=== PATIENT | female | born 1955 | race Asian ===

== ENCOUNTER → 2016-12-04 | Outpatient (REF) | payer OTHER ==
[2016-12-04 17:40] LABS: MEAN CORPUSCULAR HEMOGLOBIN 27.1 pg (27.0-33.0); MEAN CORPUSCULAR HGB CONC 32.5 g/dl (32.0-36.5); MEAN CORPUSCULAR VOLUME 83.5 fl (80.0-96.0); RED CELL DISTRIBUTION WIDTH 13.1 % (11.5-14.5); WHITE BLOOD COUNT 5.5 K/mm3 (4.0-10.0)
[2016-12-04 18:27] LABS: ALBUMIN 4.1 GM/DL (3.2-5.2); ALBUMIN/GLOBULIN RATIO 1.05 (1.00-1.93); ALKALINE PHOSPHATASE 69 U/L (45-117); ALT/SGPT 29 U/L (12-78); ANION GAP 9 MEQ/L (8-16); AST/SGOT 11 U/L (15-37); BILIRUBIN,TOTAL 0.5 MG/DL (0.2-1.0); BLOOD UREA NITROGEN 11 MG/DL (7-18); CALCIUM LEVEL 9.6 MG/DL (8.8-10.2); CARBON DIOXIDE LEVEL 29 MEQ/L (21-32); CHLORIDE LEVEL 102 MEQ/L (98-107); CHOLESTEROL LEVEL 210 MG/DL (<200); CREATININE FOR GFR 0.56 MG/DL (0.55-1.02); GLOMERULAR FILTRATION RATE > 60.0 (>45); GLUCOSE, FASTING 105 MG/DL (80-110); SODIUM LEVEL 140 MEQ/L (136-145); TRIGLYCERIDES LEVEL 198 MG/DL (<150)
== END ==
LOC: M SFHCLERA 11:07
PROVIDERS: ATTEND Family Medicine
DX: E11.9 Type 2 diabetes mellitus without complications (principal); E78.2 Mixed hyperlipidemia; E04.2 Nontoxic multinodular goiter

== ENCOUNTER 2017-03-09 16:33 | Observation (INO) | payer OTHER ==
[~2017-03-09] VITALS: Ht 157.5 cm; Wt 64.3 kg
[2017-03-09] MEDS ORDERED: LISI10TA4 PO (16:44)
[2017-03-09] MEDS ORDERED: ROSU10TA2 PO (16:44)
[2017-03-09] MEDS ORDERED: METF500T13 PO (16:44)
[2017-03-09] MEDS ORDERED: ECOT81TA5 PO (16:44)
[2017-03-09 17:24] LABS: BASO # 0.1 K/mm3 (0.0-0.2); BASO % 0.6 % (0.0-1.0); EOS # 0.1 K/mm3 (0.0-0.50); EOS % 0.6 % (0.0-3.0); LARGE UNSTAINED CELL # 0.2 K/mm3 (0.0-0.4); LARGE UNSTAINED CELL % 1.3 % (0.0-4.0); LYMPH # 1.4 K/mm3 (1.5-4.5); LYMPH % 9.3 % (24.0-44.0); MEAN CORPUSCULAR HEMOGLOBIN 27.1 pg (27.0-33.0); MEAN CORPUSCULAR HGB CONC 32.4 g/dl (32.0-36.5); MEAN CORPUSCULAR VOLUME 83.7 fl (80.0-96.0); MONO # 0.5 K/mm3 (0.0-0.8); MONO % 3.6 % (0.0-5.0); NEUTROPHILS # 12.7 K/mm3 (1.8-7.7); NEUTROPHILS % 84.7 % (36.0-66.0); PLATELET COUNT, AUTOMATED 492 k/mm3 (150-450); RED CELL DISTRIBUTION WIDTH 13.2 % (11.5-14.5)
[2017-03-09] MEDS ORDERED: METF-700 PO (17:24)
[2017-03-09] MEDS ORDERED: LISI20TA PO (17:24)
[2017-03-09 17:27] LABS: INR 0.87
[2017-03-09] MEDS ORDERED: PRAV10TA3 PO (17:32)
[2017-03-09] MEDS ORDERED: PROP40TA PO (17:32)
[2017-03-09 17:35] LABS: ALBUMIN 3.8 GM/DL (3.2-5.2); ALBUMIN/GLOBULIN RATIO 1.06 (1.00-1.93); ALKALINE PHOSPHATASE 69 U/L (45-117); ALT/SGPT 61 U/L (12-78); ANION GAP 13 MEQ/L (8-16); AST/SGOT 38 U/L (15-37); BILIRUBIN,DIRECT 0.2 MG/DL (0.0-0.2); BILIRUBIN,TOTAL 0.7 MG/DL (0.2-1.0); BLOOD UREA NITROGEN 19 MG/DL (7-18); CALCIUM LEVEL 9.6 MG/DL (8.8-10.2); CARBON DIOXIDE LEVEL 24 MEQ/L (21-32); CHLORIDE LEVEL 103 MEQ/L (98-107); CREATININE FOR GFR 1.68 MG/DL (0.55-1.02); FREE T4 1.05 NG/DL (0.76-1.46); GLOMERULAR FILTRATION RATE 32.7 (>45); GLUCOSE, FASTING 168 MG/DL (80-110); SODIUM LEVEL 140 MEQ/L (136-145); TOTAL PROTEIN 7.4 GM/DL (6.4-8.2)
--- NOTE | 2017-03-09 20:00 | REPUSA ---
Ultrasound of the gallbladder Clinical history: pain. Findings: The pancreas is limited in visualization secondary to overlying bowel gas, but appears grossly unrema rkable. The liver demonstrates increased echotexture and echogenicity, with no mass lesions. The gall bladder is unremarkable. The common bile duct measures 4 mm and is within normal limits. The right ki dney measures 10.4 cm in length. There is a simple cyst in the lower right kidney measuring 5.9 x 3.2 x 2.8 cm. There is no ascites. Impression: 1. Fatty infiltration of the liver. 2. Large simple right renal cyst.
[2017-03-09] MEDS ORDERED: ASPIRIN 81 MG ENTERIC TAB PO SCH (21:00)
[2017-03-09] MEDS ORDERED: HumaLOG INSULIN (NovoLOG) PER UNIT SC SCH (21:00)
[2017-03-09] MEDS ORDERED: NS 1,000 ML IV ONE (21:00)
[2017-03-09] MEDS ORDERED: GLUC1000 PO (21:10)
[2017-03-09] MEDS: HEPARIN SOD (PORCINE) 5000 UNITS/ML VIAL SC SCH (22:00)
[2017-03-09] MEDS ORDERED: ONDANSETRON 4 MG TAB (S0181) PO PRN (22:45)
[2017-03-09] MEDS ORDERED: ACETAMINOPHEN TAB 650MG DOSE (2X325MG) PO PRN (22:45)
--- NOTE | 2017-03-09 23:42 | HPEPDOC ---
General Date of Admission Mar 09, 2017 at 17:30 Primary Care Physician: SAMEERA CADE MD Attending Physician: RUPERT KIRK DO Chief Complaint The patient is a 62-year-old female admitted with a reason for visit of Bradycardia. Source: Patient History of Present Illness CHIEF COMPLAINT: nausea, vomiting, diarrhea, fatigue HISTORY OF PRESENT ILLNESS: Ms. Steen is a 62-year-old [place] female with a past medical history of type 2 diabetes mellitus, hypertension, hyperlipidemia, vitamin B12 deficiency, eczema, multiple thyroid nodules, and acquired bladder prolapse, who presented to the [facility] ED for a 1 day history of nausea, vomiting, diarrhea and fatigue. Daughter at bedside assisted with translating and history from patient. Last night, patient felt her heart was beating fast. At noontime today, patient felt dizzy and began to vomit. She had 3 episodes of vomiting and diarrhea both relatively at the same time. One episode was at noon, the second was at 3:00 PM, and the third was at 4:15 PM. States BM were soft, had a dark brown color, and were foul smelling but not greasy. Denied hematochezia. Vomiting did not occur after food intake persay, but rather was spontaneous in occurrence. Color of emesis was yellow or like the color of milk. Patient admits she drinks milk every night before bed. Currently, patient denied cough or hemoptysis. Denied fevers, chills, chest pain, SOB, nausea, vomiting, abdominal pain, constipation, edema, rashes, weakness in her extremities, fatigue. Admits to chills earlier but not now. Denied headaches or hx of migraines. Denied lightheadedness or dizziness now, but was lightheaded, dizzy, and feeling tired earlier today when vomiting. Denied having any falls or loss of consciousness episodes. Denied numbness/tingling anywhere. Denied pain. Denied hair thinning. Admits to cold intolerance even when the temperature is hot. She also felt weak earlier because her heart rate was low she states. Denies any recent travel, sick contacts, or eating restaurant food with any possible exposure to food poisoning. Daughter states patient has always had a problem with fluid intake and not staying well hydrated. Patient states she cannot drink a lot and always feels full if she drinks. Does not get thirsty. This has been an ongoing issue chronically and is nothing new. Otherwise, patient denies loss of appetite and is in fact hungry right now. Eats well. In the ED, patient's initial VS were afebrile T 96.6, Pulse 40, RR 20, BP 103/52 , pulse ox: 100% room air. Most recent VS show pulse 82 and BP 149/75. Patient was given 1 liter normal saline bolus. Labs were significant for CBC with elevated WBC of 15, platelets of 492, neutrophil % count 84.7, lymphocyte % count of 9.3. BMP was significant for BUN 19, Cr 1.68, GFR of 32.7, and glucose of 168. TSH was 0.140 and free T4 was 1.05. Coagulation markers showed: PT 11.9 , INR 0.87, and APTT of 25.8. Gallbladder U/S showed fatty infiltration of the liver and a large simple R renal cyst. CXR showed somewhat hypoinflated lungs, cardiomegaly, venous HTN, a tortuous ectatic aorta, but no elizabet edema, no dense consolidation, and no definite effusion. PAST MEDICAL HISTORY: Type 2 diabetes mellitus Hypertension Hyperlipidemia Vitamin B12 deficiency Eczema Multiple thyroid nodules Acquired bladder prolapse PAST SURGICAL HISTORY: Colonoscopy 3 or 4 years ago at [facility] as per patient MEDICATIONS: Pravastatin Aspirin Metformin Propanolol Please see below for all full med list and dosing. ALLERGIES: No known allergies. SOCIAL HISTORY: Denies tobacco use. Denies EtOH use. Denies illicit drug use. Lives at home with . 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 No pets. FAMILY HISTORY: Mother: of old age and was healthy Father: had HTN, of old age and was otherwise healthy--worked in a farm and was fisherman Siblings: 2 brothers and 2 sisters 1 Brother: of [place] at unknown age Another Brother: is alive and has no known medical issues 2 Sisters: possibly from [place] and high cholesterol, 1 at age 53 and the other at age 65 CODE STATUS: FULL CODE REVIEW OF SYSTEMS: All ROS are negative except for that as stated above in HPI. PHYSICAL EXAMINATION: Please see VS below. Please see PE below. LABORATORY DATA: Please refer to HPI above and see full labs below. MICROBIOLOGY: GI panel ordered and pending. ELECTROCARDIOGRAM: -EKG from 05/04/12 showed sinus rhythm with L axis deviation at a rate of 76 bmp and QTc of [address]-T wave changes. -EKG from today 03/09: showed supraventricular bradycardia at ventricular rate 40 bpm nonspecific T-wave abnormality, QTc of 411 ms -Another EKG from today 03/09: showed sinus bradycardia at a ventricular rate of 44 bpm, marked left axis deviation, nonspecific T wave abnormality, QTc of 425 ms -A rhythm monitor strip done today at 03/09 at 18:33 showed normal sinus rhythm at a ventricular rate of 85 bpm with NBP 114/61 RADIOLOGY: Gallbladder U/S showed fatty infiltration of the liver and a large simple R renal cyst. CXR showed somewhat hypoinflated lungs, cardiomegaly, venous HTN, a tortuous ectatic aorta, but no elizabet edema, no dense consolidation, and no definite effusion. ASSESSMENT: 62 yo F is presenting for an acute onset of nausea, vomiting, diarrhea. She was found to have acute renal failure as well as symptomatic bradycardia, leukocytosis, and thrombocytosis upon workup. PLAN: Vomiting & Diarrhea: possible gastroenteritis related to viral illness. Patient is afebrile but has elevated WBC count. Will order GI panel, follow CBC, and BMP trend. Zofran PRN nausea/vomiting. Continue IVF NS @ 100 mLs/hr overnight. Monitor BPs in the morning. Symptomatic Bradycardia: admit to PCU for cardiac monitoring. Check vitals q4h. Check another EKG in the morning. Leukocytosis: WBC of 15. Unknown cause, but could be due to stress demargination or viral illness causing gastroenteritis. Thrombocytosis: possibly acute phase reactant. Monitor CBC. Type 2 diabetes mellitus: hold metformin for now due to acute kidney injury and reduced GFR. Will introduce sliding scale insulin with hypoglycemic protocol. Hypertension: BP stable. However, due to dehydration status with nausea/vomiting , patient has been on the soft side with blood pressure.. BPs have been soft. Will continue IVF. Hyperlipidemia: continue pravastatin and aspirin. Vitamin B12 deficiency: consider vitamin B12 level. Eczema: chronic. Monitor clinically. Multiple thyroid nodules: TSH was low at 0.140 with normal Free T4 was WNL. Patient does not seem to be on any thyroid replacement medication such as levothyroxine or synthroid or armour thyroid. Recommend patient to speak to PCP about any further workup or recommendations for suppressed TSH. Acquired bladder prolapse: chronic. Monitor clinically. DVT ppx: SC heparin q8h Immunizations as per protocol. FULL CODE STATUS My preceptor for this patient encounter was Dr. Rupert Kirk, and was physically present in the building during the encounter and was fully available. As needed, all aspects of the patient interview, examination, medical decision making process, and medical care plan development were reviewed and approved by the preceptor. Preceptor is aware and concurs with the plan as stated in the body of this note and will attest to such by his/her cosignature. Home Medications Scheduled (Lisinopril/Hydrochlorothi 20-12.5 mg) 1 Tab Tab, 1 TAB PO DAILY, (Reported) Aspirin (Ecotrin Low Strength) 81 Mg Tab, 81 MG PO QHS, (Reported) Metformin Hydrochloride (Glucophage) 1,000 Mg Tab, 1,000 MG PO BID, (Reported) Pravastatin Sodium (Pravastatin Sodium) 10 Mg Tab, 10 MG PO DAILY, (Reported) Propranolol HCl (Propranolol HCl) 40 Mg Tab, 40 MG PO BID, (Reported) Scheduled PRN Ondansetron (Zofran Odt) 4 Mg Tab, 4 MG PO Q4H PRN for NAUSEA Allergies Coded Allergies: No Known Allergies (Unverified , 03/09/17) Physical Examination General Exam: Positive: Alert, Cooperative, No Acute Distress Eye Exam: Positive: Conjunctiva & lids normal ENT Exam: Positive: Atraumatic, Tongue Midline, Other ENT (dry tongue and mucous membranes as well as dry lips), Negative: Pharyngeal Edema Neck Exam: Positive: Supple, Negative: JVD, thyromegaly, Lymphadenopathy Chest Exam: Positive: Clear to auscultation, Normal air movement, Negative: Rales, Rhonchi, Wheezing Heart Exam: Positive: Rate Normal, Regular Rhythm, Normal S1, Normal S2, Negative: Gallops, Murmurs, Rubs Abdomen Exam: Positive: Normal bowel sounds, Soft, Negative: Tenderness, Hepatospenomegaly Extremity Exam: Positive: Normal pulses, Negative: Clubbing, Cyanosis, Edema, Tenderness Skin Exam: Positive: Nl turgor and temperature, Negative: Rash Neuro Exam: Positive: Normal Speech Psych Exam: Positive: Mental status NL, Mood NL, Memory Intact, Oriented x 3 Vital Signs Vital Signs Date Time Temp Pulse Resp B/P (MAP) Pulse Ox O2 Delivery O2 Flow Rate FiO2 03/09/17 22:20 Room Air 03/09/17 22:15 97.3 157/64 (95) 03/09/17 22:03 85 18 99 Laboratory Data Labs 24H Laboratory Tests 2 03/09/17 16:59: White Blood Count 15.0H, Red Blood Count 5.10, Hemoglobin 13.8, Hematocrit 42.7 , Mean Corpuscular Volume 83.7, Mean Corpuscular Hemoglobin 27.1, Mean Corpuscular Hemoglobin Concent 32.4, Red Cell Distribution Width 13.2, Platelet Count 492H, Neutrophils (%) (Auto) 84.7H, Lymphocytes (%) (Auto) 9.3L, Monocytes (%) (Auto) 3.6, Eosinophils (%) (Auto) 0.6, Basophils (%) (Auto) 0.6, Neutrophils # (Auto) 12.7H, Lymphocytes # (Auto) 1.4L, Monocytes # (Auto) 0.5, Eosinophils # (Auto) 0.1, Basophils # (Auto) 0.1, Large Unclassified Cells % 1.3 , Large Unclassified Cells # 0.2, Prothrombin Time 11.9L, Prothromb Time International Ratio 0.87, Activated Partial Thromboplast Time 25.8L, Anion Gap 13, Glomerular Filtration Rate 32.7L, Calcium Level 9.6, Aspartate Amino Transf (AST/SGOT) 38H, Alanine Aminotransferase (ALT/SGPT) 61, Alkaline Phosphatase 69 , Total Bilirubin 0.7, Direct Bilirubin 0.2, Total Creatine Kinase 57, Creatine Kinase MB 1.0, Creatine Kinase MB Relative Index 1.75, Troponin I < 0.02, Total Protein 7.4, Albumin 3.8, Albumin/Globulin Ratio 1.06, Thyroid Stimulating Hormone (TSH) 0.140L, Free Thyroxine 1.05 CBC/BMP Laboratory Tests 03/09/17 16:59 Red Blood Count 5.10, Mean Corpuscular Volume 83.7, Mean Corpuscular Hemoglobin 27.1, Mean Corpuscular Hemoglobin Concent 32.4, Red Cell Distribution Width 13.2 , Neutrophils (%) (Auto) 84.7 H, Lymphocytes (%) (Auto) 9.3 L, Monocytes (%) ( Auto) 3.6, Eosinophils (%) (Auto) 0.6, Basophils (%) (Auto) 0.6, Neutrophils # ( Auto) 12.7 H, Lymphocytes # (Auto) 1.4 L, Monocytes # (Auto) 0.5, Eosinophils # (Auto) 0.1, Basophils # (Auto) 0.1 Plan / VTE VTE Prophylaxis Ordered?: Yes (SC heparin) ONEL MIR OGME-1 Mar 09, 2017 23:42
[2017-03-10 00:05] VITALS: BP 168/79
[2017-03-10 00:06] VITALS: BP 161/73
[2017-03-10 00:08] VITALS: BP 170/78
[2017-03-10] MEDS ORDERED: DEXTROSE 50% 50 ML SYRINGE IV PRN (00:30)
[2017-03-10] MEDS ORDERED: GLUCAGON FOR INJ 1 MG VIAL (J1610) SC PRN (00:30)
[2017-03-10] MEDS ORDERED: GLUCOSE 4 GM CHEW TABLET PO PRN (00:30)
[2017-03-10] MEDS: NS 1,000 ML IV SCH ×2 (00:57→08:45)
[2017-03-10 04:45] VITALS: BP 156/72
[2017-03-10 05:42] LABS: BASO % 0.3 % (0.0-1.0); EOS # 0.1 K/mm3 (0.0-0.50); EOS % 0.9 % (0.0-3.0); LARGE UNSTAINED CELL # 0.1 K/mm3 (0.0-0.4); LARGE UNSTAINED CELL % 1.1 % (0.0-4.0); LYMPH # 2.1 K/mm3 (1.5-4.5); MEAN CORPUSCULAR HEMOGLOBIN 26.9 pg (27.0-33.0); MEAN CORPUSCULAR HGB CONC 32.8 g/dl (32.0-36.5); MONO % 7.9 % (0.0-5.0); NEUTROPHILS # 9.1 K/mm3 (1.8-7.7); NEUTROPHILS % 73.8 % (36.0-66.0); RED CELL DISTRIBUTION WIDTH 13.5 % (11.5-14.5); WHITE BLOOD COUNT 12.3 K/mm3 (4.0-10.0)
[2017-03-10 05:49] LABS: PLATELET COUNT, AUTOMATED 372 k/mm3 (150-450)
[2017-03-10 05:54] LABS: CALCIUM LEVEL 9.1 MG/DL (8.8-10.2); GLOMERULAR FILTRATION RATE 59.4 (>45); POTASSIUM SERUM 3.5 MEQ/L (3.5-5.1)
[2017-03-10] MEDS: HEPARIN SOD (PORCINE) 5000 UNITS/ML VIAL SC SCH (06:00)
[2017-03-10] MEDS ORDERED: HumaLOG INSULIN (NovoLOG) PER UNIT SC SCH (07:30)
[2017-03-10 08:00] VITALS: BP_SYST 175; BP_SYST 185; BP_SYST 194; BP_DIAS 81; BP_DIAS 83; BP_DIAS 88
[2017-03-10] MEDS ORDERED: metFORMIN (GLUCOPHAGE) 1000 MG TABLET PO SCH (08:00)
--- NOTE | 2017-03-10 08:03 | ECGEPIP ---
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
--- NOTE | 2017-03-10 08:05 | ECGEPIP ---
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
[2017-03-10 08:09] VITALS: BP 175/81
[2017-03-10] MEDS ORDERED: PROPRANOLOL 20 MG TAB PO SCH (09:00)
[2017-03-10] MEDS ORDERED: PRAVASTATIN 10 MG TAB PO SCH (09:00)
[2017-03-10] MEDS ORDERED: ZOFR4TAB3 PO (09:08)
--- NOTE | 2017-03-10 09:23 | REP ---
AP PORTABLE CHEST: 03/09/2017. Clinical history: Chest pain. Comparison: Two-view chest 05/04/2012. Findings: Lungs less well inflated than on the previous study. There is some crowding of markings. There is mild cardiomegaly with left atrial enlargement and some venous hypertension. I do not see elizabte edema, pleural effusion or dense consolidation, but the aorta is mildly tortuous and ectatic, unchanged. Airway midline. Bones intact without no definite acute finding. Impression: 1. Somewhat hypoinflated but still with mild cardiomegaly, venous hypertension and a tortuous ectatic aorta. No elizabet edema, dense consolidation or definite effusion. Signed by Shaun Samano MD 03/10/2017 05:50 P
--- NOTE | 2017-03-10 17:25 | DSES ---
DATE OF ADMISSION: 03/09/2017 DATE OF DISCHARGE: 03/10/2017 PRIMARY CARE PROVIDER: Dr. Elias Baca. FINAL DIAGNOSES: 1. Gastroenteritis. 2. Nausea, vomiting, diarrhea secondary to gastroenteritis. 3. Symptomatic bradycardia likely vasovagal due to nausea and vomiting. 4. Leukocytosis due to gastroenteritis viral illness, currently resolved. 5. Thrombocytosis, possibly reactive. 6. Type 2 diabetes. 7. Hypertension. 8. Dyslipidemia. 9. Vitamin B12 deficiency. HISTORY OF PRESENT ILLNESS: This is a 62-year-old [place] female patient with underlying medical history of type 2 diabetes, hypertension, dyslipidemia, vitamin B12 deficiency, eczema, multiple thyroid nodules and chronic bladder prolapse, who presented to [facility] for one-day history of nausea, vomiting and diarrhea and fatigue. Per the daughter in the history taking of the patient initially, the patient felt that her heart was beating fast at noontime. The patient began to feel dizzy and began to vomit and had three episodes of nausea, vomiting and diarrhea and relatively the same time, one episode at noon, and second episode at 3 p.m., and third episode at 4:15 p.m., and the patient stated that bowel movement was soft, dark color and was foul smelling but not greasy. Denies any hematochezia. The patient denies any cough, denies any fever, chills, chest pain, shortness of breath, nausea or vomiting, abdominal pain. Denies constipation. Denies any sick contact or recent travel or eating any abnormal food. The daughter reported the patient is not drinking as much fluids. HOSPITAL COURSE: The patient was admitted to the hospital. Intravenous (IV) fluids have been given. The patient's kidney function and electrolytes were followed. The patient was placed on telemetry given patient initially was slightly bradycardic overnight. The patient's orthostatics were negative. Pulse has been negative with negative telemetry. Leukocytosis improved from 15 to 12.3, with no further diarrhea, nausea or vomiting. Creatinine has improved from 1.69 to one. The patient currently is comfortable, and requests to be discharged from the hospital. Denies any abdominal pain, chest pain, pressure or discomfort. Tolerating oral. OBJECTIVE: VITAL SIGNS: Temperature 97.4, pulse 88, respirations 16, blood pressure 156/72. Pulse oximetry 99% on room air. GENERAL: Patient alert and oriented times three. In no acute distress. HEENT: Normocephalic, atraumatic. PULMONARY: Bilaterally clear to auscultation. CARDIAC: Regular rate and rhythm. Normal S1, S2. ABDOMEN: Soft, nontender. Positive bowel sounds. EXTREMITIES: No clubbing, cyanosis or edema. LABORATORY DATA: WBC 12.3, hemoglobin and hematocrit 12.3 over 37.4, platelets 372. Chemistry: Sodium 143, potassium 3.5, chloride 106, bicarbonate 25, BUN 21, creatinine 1.0. DISCHARGE/HOME MEDICATIONS: - Zofran 4 mg by mouth every four hours as needed - aspirin 81 mg by mouth at bedtime - lisinopril hydrochlorothiazide 20/12.5 by mouth daily - metformin 1000 mg by mouth twice a day - pravastatin 10 mg by mouth daily - propranolol 40 mg by mouth twice a day DISCHARGE INSTRUCTIONS: The patient is instructed to followup with primary care provider in five days. Return to the hospital if symptoms worsen. Oral hydration.
--- NOTE | 2017-03-10 21:57 | ECGEPIP ---
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
== END 2017-03-10 11:24 | disposition home or self-care (01) ==
LOC: M ED 17:29 → M ED INP 17:30 → M PCU 03-10 00:07
PROVIDERS: ADMIT Hospitalist; ATTEND Hospitalist
DX: K52.89 Other specified noninfective gastroenteritis and colitis (principal); R00.1 Bradycardia, unspecified; R11.2 Nausea with vomiting, unspecified; R19.7 Diarrhea, unspecified; D72.829 Elevated white blood cell count, unspecified; D47.3 Essential (hemorrhagic) thrombocythemia; E11.9 Type 2 diabetes mellitus without complications; I10 Essential (primary) hypertension; E78.5 Hyperlipidemia, unspecified; E53.9 Vitamin B deficiency, unspecified; E04.2 Nontoxic multinodular goiter; Z79.82 Long term (current) use of aspirin; Z79.899 Other long term (current) drug therapy; Z79.84 Long term (current) use of oral hypoglycemic drugs

== ENCOUNTER → 2017-04-10 | Outpatient (REF) | payer OTHER ==
[~2017-04-10] MED LIST: ECOT81TA5 PO; GLUC1000 PO; LISI10TA4 PO; LISI20TA PO; METF-700 PO; METF500T13 PO; PRAV10TA3 PO; PROP40TA PO; ROSU10TA2 PO; ZOFR4TAB3 PO
[2017-04-10 16:02] LABS: ANION GAP 9 MEQ/L (8-16); BLOOD UREA NITROGEN 11 MG/DL (7-18); CALCIUM LEVEL 9.4 MG/DL (8.8-10.2); CARBON DIOXIDE LEVEL 28 MEQ/L (21-32); CHLORIDE LEVEL 105 MEQ/L (98-107); GLOMERULAR FILTRATION RATE > 60.0 (>45); GLUCOSE, FASTING 107 MG/DL (80-110); POTASSIUM SERUM 4.4 MEQ/L (3.5-5.1); SODIUM LEVEL 142 MEQ/L (136-145)
== END ==
LOC: M SFHCLERA 10:14
PROVIDERS: ATTEND Family Medicine
DX: N17.9 Acute kidney failure, unspecified (principal); E86.0 Dehydration

== ENCOUNTER → 2017-05-24 | Outpatient (CLI) | payer OTHER ==
--- NOTE | 2017-05-24 09:41 | REPMRS ---
Patient History The patient states she has not had a clinical breast exam in over a year. Patient is postmenopausal. No known family history of cancer. Digital Mammo Screening Bilat: May 24, 2017 - Exam #: [id number] Bilateral CC and MLO view(s) were taken. Technologist: Valerie Mak Technologist Prior study comparison: July 22, 2013, bilateral digital mammo screening bilat performed at [facility]. FINDINGS: There are scattered fibroglandular densities. There has been no change in the appearance of the mammogram from the prior studies. There is a mild amount of residual fibroglandular tissue which is fairly symmetric. There is no interval development of dominant mass, architectural distortion, or clustered microcalcification suggestive of malignancy. ASSESSMENT: BI-RADS/ACR category 1 mammogram. Negative. Recommendation Routine screening mammogram in 1 year (for women over age 40). This mammogram was interpreted with the aid of an FDA-approved computer-aided dectection system. Electronically Signed By: Armando Pavon MD 05/24/17 0941
== END ==
LOC: M RAD 08:54
PROVIDERS: ATTEND Family Medicine
DX: Z12.31 Encounter for screening mammogram for malignant neoplasm of breast (principal); Z78.0 Asymptomatic menopausal state

== ENCOUNTER → 2017-09-02 | Outpatient (REF) | payer OTHER | LOC: M SFHCLERA 09:04 | DX: E11.9 Type 2 diabetes mellitus without complications (principal) ==

== ENCOUNTER → 2017-09-10 | Outpatient (REF) | payer OTHER ==
[2017-09-10 12:24] LABS: HEMATOCRIT 41.9 % (36.0-47.0); HEMOGLOBIN 13.3 g/dl (12.0-16.0); MEAN CORPUSCULAR HEMOGLOBIN 25.9 pg (27.0-33.0); MEAN CORPUSCULAR HGB CONC 31.7 g/dl (32.0-36.5); MEAN CORPUSCULAR VOLUME 81.7 fl (80.0-96.0); PLATELET COUNT, AUTOMATED 495 10^3/uL (150-450); RED BLOOD COUNT 5.13 10^6/uL (4.00-5.40); RED CELL DISTRIBUTION WIDTH 14.2 % (11.5-14.5)
[2017-09-10 13:01] LABS: ESTIMATED AVERAGE GLUCOSE 146 MG/DL (60-110); HEMOGLOBIN A1c 6.7 %
[2017-09-10 13:10] LABS: ALBUMIN 3.8 GM/DL (3.2-5.2); ALBUMIN/GLOBULIN RATIO 0.93 (1.00-1.93); ALKALINE PHOSPHATASE 59 U/L (45-117); ALT/SGPT 22 U/L (12-78); ANION GAP 8 MEQ/L (8-16); AST/SGOT 9 U/L (7-37); BILIRUBIN,TOTAL 0.5 MG/DL (0.2-1.0); BLOOD UREA NITROGEN 13 MG/DL (7-18); CALCIUM LEVEL 9.5 MG/DL (8.8-10.2); CARBON DIOXIDE LEVEL 30 MEQ/L (21-32); CHLORIDE LEVEL 101 MEQ/L (98-107); CHOLESTEROL LEVEL 184 MG/DL (<200); CHOLESTEROL RISK RATIO 3.228 (<5); CREATININE FOR GFR 0.53 MG/DL (0.55-1.30); GLOMERULAR FILTRATION RATE > 60.0 (>45); GLUCOSE, FASTING 111 MG/DL (70-100); HDL CHOLESTEROL 57 MG/DL (>40); LDL CHOLESTEROL 84.6 MG/DL (<100); NON-HDL-C 127 MG/DL; POTASSIUM SERUM 4.2 MEQ/L (3.5-5.1); SODIUM LEVEL 139 MEQ/L (136-145); THYROID STIMULATING HORMONE 0.035 uIU/ML (0.358-3.740); TOTAL PROTEIN 7.9 GM/DL (6.4-8.2); TRIGLYCERIDES LEVEL 212 MG/DL (<150)
[2017-09-10 13:36] LABS: MALB URINE SIEMENS 8.5 MG/L; MAU/CREAT RATIO 6.3 MCG/MG (0.0-30.0)
== END ==
LOC: M SFHCLERA 07:53
DX: E11.9 Type 2 diabetes mellitus without complications (principal)
CPT/HCPCS: 84443

== ENCOUNTER → 2018-03-13 | Outpatient (REF) | payer OTHER ==
[2018-03-13 14:07] LABS: ESTIMATED AVERAGE GLUCOSE 143 MG/DL (60-110); HEMOGLOBIN A1c 6.6 %
[2018-03-13 14:27] LABS: ANION GAP 9 MEQ/L (8-16); BLOOD UREA NITROGEN 11 MG/DL (7-18); CALCIUM LEVEL 9.3 MG/DL (8.8-10.2); CARBON DIOXIDE LEVEL 28 MEQ/L (21-32); CHLORIDE LEVEL 106 MEQ/L (98-107); CREATININE FOR GFR 0.67 MG/DL (0.55-1.30); FREE T4 1.19 NG/DL (0.76-1.46); GLOMERULAR FILTRATION RATE > 60.0 (>45); GLUCOSE, FASTING 102 MG/DL (70-100); POTASSIUM SERUM 3.5 MEQ/L (3.5-5.1); SODIUM LEVEL 143 MEQ/L (136-145); THYROID STIMULATING HORMONE 0.015 uIU/ML (0.358-3.740)
== END ==
LOC: M SFHCLERA 09:16
DX: E11.9 Type 2 diabetes mellitus without complications (principal); E04.2 Nontoxic multinodular goiter

== ENCOUNTER → 2018-04-14 | Outpatient (CLI) | payer MEDICAID | LOC: M RAD 14:51 | DX: E04.2 Nontoxic multinodular goiter (principal) | CPT/HCPCS: 76536 ==

== ENCOUNTER → 2018-05-07 | Outpatient (CLI) | payer MEDICAID | LOC: M RAD 08:48 | DX: Z12.31 Encounter for screening mammogram for malignant neoplasm of breast (principal) | CPT/HCPCS: 77067 ==

== ENCOUNTER → 2018-07-11 | Outpatient (CLI) | payer MEDICAID ==
[2018-07-11 12:27] LABS: FREE T4 1.24 NG/DL (0.76-1.46); THYROID STIMULATING HORMONE 0.017 uIU/ML (0.358-3.740)
== END ==
LOC: M LAB 11:17
DX: R94.6 Abnormal results of thyroid function studies (principal)
CPT/HCPCS: 84443

== ENCOUNTER → 2018-09-08 | Outpatient (CLI) | payer MEDICAID ==
[~2018-09-08] MED LIST changes: -PROP40TA PO; +PROP40TA62 PO; -ROSU10TA2 PO; +ROSU10TA5 PO; +ZOFR4TAB14 PO; -ZOFR4TAB3 PO
--- NOTE | 2018-09-08 17:58 | REP ---
THYROID ULTRASOUND: Real-time sonographic evaluation of the thyroid was performed and compared to prior study of 04/14/2018. Both lobes are again somewhat enlarged, right lobe measuring 5.8 x 2.1 x 1.7 cm and left lobe 5.1 x 3.9 x 2.6 cm. There is a cyst in the right upper pole 3 mm in diameter. A solid nodule in the right lower pole measures 6 mm unchanged. An adjacent complex cyst measures 6 mm, unchanged. A large complex nodule in the left lobe is unchanged measuring 4.0 x 3.1 x 2.1 cm. IMPRESSION: Stable exam. Electronically Signed by Armando Pavon MD 09/08/2018 07:58 P
== END ==
LOC: M RAD 14:21
PROVIDERS: ATTEND Otolaryngology
DX: E04.2 Nontoxic multinodular goiter (principal)

== ENCOUNTER → 2018-10-15 | Outpatient (REF) | payer MEDICAID ==
[2018-10-15 12:07] LABS: ALT/SGPT 15 U/L (12-78); BILIRUBIN,TOTAL 0.6 MG/DL (0.2-1.0); BLOOD UREA NITROGEN 12 MG/DL (7-18); CALCIUM LEVEL 9.2 MG/DL (8.8-10.2); CARBON DIOXIDE LEVEL 28 MEQ/L (21-32); CHLORIDE LEVEL 104 MEQ/L (98-107); CHOLESTEROL LEVEL 196 MG/DL (<200); CHOLESTEROL RISK RATIO 2.969 (<5); FREE T4 1.27 NG/DL (0.76-1.46); GLOMERULAR FILTRATION RATE > 60.0 (>45); GLUCOSE, FASTING 115 MG/DL (70-100); HDL CHOLESTEROL 66 MG/DL (>40); LDL CHOLESTEROL 97 MG/DL (<100); NON-HDL-C 130 MG/DL; POTASSIUM SERUM 4.2 MEQ/L (3.5-5.1); SODIUM LEVEL 140 MEQ/L (136-145); THYROID STIMULATING HORMONE 0.015 uIU/ML (0.358-3.740); TOTAL PROTEIN 7.8 GM/DL (6.4-8.2); TRIGLYCERIDES LEVEL 164 MG/DL (<150)
[2018-10-15 12:29] LABS: CREATININE, URINE 31.7 MG/DL; MALB URINE SIEMENS < 5.0 MG/L; MAU/CREAT RATIO 15.7 MCG/MG (0.0-30.0)
[2018-10-15 14:56] LABS: HEMOGLOBIN A1c 6.1 %
== END ==
LOC: M SFHCLERA 09:31
PROVIDERS: ATTEND Family Medicine
DX: E11.9 Type 2 diabetes mellitus without complications (principal); E05.90 Thyrotoxicosis, unspecified without thyrotoxic crisis or storm

== ENCOUNTER → 2019-03-25 | Outpatient (CLI) | payer MEDICAID, MEDICARE, OTHER ==
[~2019-03-25] MED LIST changes: -LISI20TA PO; +LISI20TA18 PO; -ROSU10TA5 PO; +ROSU10TA6 PO
--- NOTE | 2019-03-25 17:47 | REP ---
THYROID ULTRASOUND: Real-time sonographic evaluation of the thyroid performed. Both lobes are mildly enlarged similar to the prior exam of 09/08/2018. Right lobe measures 5.7 x 1.7 x 1.5 cm and left lobe 5.3 x 3.0 x 2.4 cm. In the mid right lobe a solid appearing nodule measures 6 mm, unchanged. There is a complex cyst inferomedial to that which is stable measuring 7 mm maximally. There is a suggestion of a 1 cm isoechoic nodule in the most inferior aspect of the right lobe. I am uncertain whether this was present on the prior exam. In the left lobe mid aspect is a complex cystic and solid nodule measuring 4.7 x 2.1 x 3.0 cm measuring slightly greater than the prior study, 4.7 x 2.1 x 3.0 cm, previously 4.0 x 3.1 x 2.1 cm. There is a tiny 3 mm nodule inferiorly on the left. IMPRESSION: Mild enlargement of both lobes of the thyroid. Right sided nodules are stable. However, there does appear to be an isoechoic nodule in the right lower pole 1 cm in diameter. I am uncertain if this was present on the prior study, but at any rate it was not identified. Complex cystic and solid nodule in the mid left lobe has slightly increased in size since prior study. Continued followup is recommended. Electronically Signed by Armando Pavon MD 03/27/2019 10:49 A
== END ==
LOC: M RAD 13:55
PROVIDERS: ATTEND Otolaryngology
DX: E04.2 Nontoxic multinodular goiter (principal)

== ENCOUNTER → 2019-05-21 | Outpatient (REF) | payer MEDICAID, MEDICARE ==
[~2019-05-21] MED LIST changes: -LISI20TA18 PO; +LISI20TA19 PO
[2019-05-21 16:38] LABS: ALBUMIN 4.1 GM/DL (3.2-5.2); ALT/SGPT 14 U/L (12-78); BILIRUBIN,TOTAL 0.7 MG/DL (0.2-1.0); BLOOD UREA NITROGEN 12 MG/DL (7-18); CARBON DIOXIDE LEVEL 29 MEQ/L (21-32); CHLORIDE LEVEL 104 MEQ/L (98-107); CHOLESTEROL LEVEL 181 MG/DL (<200); CHOLESTEROL RISK RATIO 2.967 (<5); CREATININE FOR GFR 0.65 MG/DL (0.55-1.30); GLOMERULAR FILTRATION RATE > 60.0 (>45); GLUCOSE, FASTING 104 MG/DL (70-100); HDL CHOLESTEROL 61 MG/DL (>40); LDL CHOLESTEROL 92 MG/DL (<100); NON-HDL-C 120 MG/DL; POTASSIUM SERUM 4.2 MEQ/L (3.5-5.1); SODIUM LEVEL 139 MEQ/L (136-145); THYROID STIMULATING HORMONE 0.006 uIU/ML (0.358-3.740); TOTAL PROTEIN 8.3 GM/DL (6.4-8.2); TRIGLYCERIDES LEVEL 140 MG/DL (<150)
[2019-05-21 17:06] LABS: HEMOGLOBIN A1c 6.3 %
== END ==
LOC: M SFHCLERA 12:33
PROVIDERS: ATTEND Family Medicine
DX: E11.9 Type 2 diabetes mellitus without complications (principal)

== ENCOUNTER → 2019-05-29 | Outpatient (CLI) | payer MEDICARE, MEDICAID ==
[~2019-05-29] MED LIST changes: +LIDOCAINE 1% MDV 20ML VIAL As Ordered ONE
[2019-05-29 11:21] VITALS: BP 142/67
--- NOTE | 2019-05-30 17:50 | REP ---
Ultrasound-guided right inferior pole thyroid biopsy This procedure was performed by CUAUHTEMOC Devlin, under the direct supervision of Dr. Pavon. The patient has a history of Isoechoic nodule in the right lower pole 1 cm in diameter on an ultrasound dated 03/25/2019. The risks and the benefits of the procedure were explained to the patient and informed consent was obtained both verbally and written. Directly prior to the start of the procedure, a formal time out was completed in the procedure room. The inferior right thyroid nodule was localized using ultrasound guidance. The skin was prepped and draped in a sterile fashion. 4 ml of 1% lidocaine was used as a local anesthetic. Using ultrasound guidance 4 fine-needle aspirations were obtained using 25 gauge needles of the inferior right thyroid nodule. The patient tolerated the procedure well and there were no immediate complications. After the appropriate amount of monitored convalescence the patient was discharged from the department. Reviewed by CUAUHTEMOC Devlin 05/29/2019 02:20 P Electronically Signed by Armando Pavon MD 05/30/2019 05:41 P
== END ==
LOC: M IRPRO 10:38
PROVIDERS: ATTEND Otolaryngology
DX: E04.2 Nontoxic multinodular goiter (principal)

== ENCOUNTER → 2020-05-02 | Outpatient (CLI) | payer MEDICARE, OTHER ==
[~2020-05-02] MED LIST changes: -LIDOCAINE 1% MDV 20ML VIAL As Ordered ONE; -LISI20TA19 PO; +LISI20TA35 PO; -METF-700 PO; +METF-818 PO
[2020-05-02 13:16] LABS: HEMATOCRIT 45.3 % (36.0-47.0); HEMOGLOBIN 14.4 g/dl (12.0-15.5); MEAN CORPUSCULAR HEMOGLOBIN 25.9 pg (27.0-33.0); MEAN CORPUSCULAR HGB CONC 31.8 g/dl (32.0-36.5); MEAN CORPUSCULAR VOLUME 81.5 fl (80.0-96.0); PLATELET COUNT, AUTOMATED 407 10^3/uL (150-450); RED BLOOD COUNT 5.56 10^6/uL (4.00-5.40); WHITE BLOOD COUNT 6.9 10^3/uL (4.0-10.0)
[2020-05-02 13:33] LABS: HEMOGLOBIN A1c 6.3 %
[2020-05-02 13:40] LABS: ALBUMIN 3.7 GM/DL (3.2-5.2); ALT/SGPT 26 U/L (12-78); BILIRUBIN,TOTAL 0.6 MG/DL (0.2-1.0); BLOOD UREA NITROGEN 13 MG/DL (7-18); CALCIUM LEVEL 9.3 MG/DL (8.8-10.2); CARBON DIOXIDE LEVEL 27 MEQ/L (21-32); CHLORIDE LEVEL 105 MEQ/L (98-107); CHOLESTEROL LEVEL 199 MG/DL (<200); CHOLESTEROL RISK RATIO 2.763 (<5); CREATININE FOR GFR 0.67 MG/DL (0.55-1.30); FREE T4 1.18 NG/DL (0.76-1.46); GLOMERULAR FILTRATION RATE > 60.0 (>45); GLUCOSE, FASTING 102 MG/DL (70-100); HDL CHOLESTEROL 72 MG/DL (>40); LDL CHOLESTEROL 91 MG/DL (<100); NON-HDL-C 127 MG/DL; POTASSIUM SERUM 3.6 MEQ/L (3.5-5.1); SODIUM LEVEL 140 MEQ/L (136-145); THYROID STIMULATING HORMONE 0.007 uIU/ML (0.358-3.740); TRIGLYCERIDES LEVEL 182 MG/DL (<150)
[2020-05-02 13:46] LABS: CREATININE, URINE 84.1 MG/DL; CREATININE,RANDOM URINE 84.1 MG/DL; MAU/CREAT RATIO 83.2 MCG/MG (0.0-30.0)
== END ==
LOC: M LAB 11:32
PROVIDERS: ATTEND Family Medicine
DX: E11.9 Type 2 diabetes mellitus without complications (principal); E03.9 Hypothyroidism, unspecified

== ENCOUNTER → 2020-05-03 | Outpatient (CLI) | payer MEDICARE, MEDICAID ==
--- NOTE | 2020-05-11 08:38 | REP ---
THYROID SONOGRAPHY HISTORY: Nontoxic multinodular goiter. COMPARISON: Thyroid sonography 03/25/2019. SONOGRAPHIC FINDINGS: Thyroid isthmus measures 0.25 cm in thickness. Right lobe dimension by ultrasound today are 5.6 x 2.2 x 1.5 cm. Left lobe measures 5.0 x 3.1 x 2.4 cm. These values are similar to previous study. Multiple nodules are again noted bilaterally essentially unchanged. The largest of these is a complex predominantly mixed cystic and solid lesion on the left measuring 4.1 x 2.1 x 2.8 cm, previously 4.7 x 2.1 x 3.0 cm. There is a 0.5 cm nodule to the right of midline in the isthmus and a 0.3 cm nodule in the upper pole on the right. IMPRESSION: Mild multinodular goiter. Large complex cystic and solid nodule in the left lobe is felt to be unchanged, 4.1 cm in greatest diameter. MTDD
== END ==
LOC: M RAD 07:57
PROVIDERS: ATTEND Otolaryngology
DX: E04.2 Nontoxic multinodular goiter (principal)

== ENCOUNTER → 2020-11-22 | Outpatient (CLI) | payer MEDICARE, MEDICAID ==
[~2020-11-22] MED LIST changes: +LISI10TA22 PO; -LISI10TA4 PO
[2020-11-22 10:49] LABS: HEMOGLOBIN A1c 5.9 %
[2020-11-22 11:27] LABS: CREATININE, URINE 64.1 MG/DL; MALB URINE SIEMENS 56.4 MG/L; MAU/CREAT RATIO 87.9 MCG/MG (0.0-30.0)
[2020-11-22 11:32] LABS: BLOOD UREA NITROGEN 11 MG/DL (7-18); CALCIUM LEVEL 9.4 MG/DL (8.8-10.2); CARBON DIOXIDE LEVEL 27 MEQ/L (21-32); CHLORIDE LEVEL 103 MEQ/L (98-107); CHOLESTEROL LEVEL 213 MG/DL (<200); CHOLESTEROL RISK RATIO 2.802 (<5); CREATININE FOR GFR 0.59 MG/DL (0.55-1.30); FREE T4 0.84 NG/DL (0.76-1.46); GLOMERULAR FILTRATION RATE > 60.0 (>45); GLUCOSE, FASTING 103 MG/DL (70-100); HDL CHOLESTEROL 76 MG/DL (>40); LDL CHOLESTEROL 102 MG/DL (<100); NON-HDL-C 137 MG/DL; POTASSIUM SERUM 4.3 MEQ/L (3.5-5.1); SODIUM LEVEL 138 MEQ/L (136-145); TRIGLYCERIDES LEVEL 174 MG/DL (<150)
== END ==
LOC: M LAB 08:55
PROVIDERS: ATTEND Family Medicine
DX: E04.2 Nontoxic multinodular goiter (principal); E11.9 Type 2 diabetes mellitus without complications; E78.2 Mixed hyperlipidemia

== ENCOUNTER → 2021-02-20 | Outpatient (CLI) | payer MEDICARE, MEDICAID ==
[~2021-02-20] MED LIST changes: +AMLO2.5T3 PO; +METF10004 PO; +PRAV20TA2 PO
== END ==
LOC: M LABSMTC 10:24
PROVIDERS: ATTEND Anesthesiology
DX: Z01.812 Encounter for preprocedural laboratory examination (principal); Z20.822 Contact with and (suspected) exposure to COVID-19

== ENCOUNTER 2021-02-24 06:23 | Day surgery (SDC) | payer MEDICARE, MEDICAID ==
[~2021-02-24] VITALS: Ht 160 cm; Wt 56.7 kg
[~2021-02-24 06:23] MED LIST changes: +NS 1,000 ML IV ONE
[2021-02-24] MEDS ORDERED: propofoL 200 MG/20 ML VIAL As Ordered ONE ×2 (07:16→07:54)
[2021-02-24] MEDS ORDERED: LIDOCAINE 2% 100MG/5ML SDV (FOR ANES.) As Ordered ONE (07:16)
--- NOTE | 2021-02-24 08:03 | ROOR ---
Patient Name: Christiana Steen Procedure Date: 02/24/2021 7:37 AM Date of : 1955 Age: 66 Room: [facility] Gender: Female Note Status: Finalized Procedure: Colonoscopy Indications: Screening for colorectal malignant neoplasm Providers: Jose Roman MD Referring MD: Daniel Gomez DO Requesting Provider: Medicines: Monitored Anesthesia Care Complications: No immediate complications. Procedure: Pre-Anesthesia Assessment: - The heart rate, respiratory rate, oxygen saturations, blood pressure, adequacy of pulmonary ventilation, and response to care were monitored throughout the procedure. The Colonoscope was introduced through the anus and advanced to the terminal ileum, with identification of the appendiceal orifice and IC valve. The colonoscopy was performed without difficulty. The patient tolerated the procedure well. The quality of the bowel preparation was good. Findings: Skin tags were found on perianal exam. Internal hemorrhoids were found during retroflexion. The hemorrhoids were medium-sized. A 5 mm polyp was found in the distal ascending colon. The polyp was sessile. The polyp was removed with a cold snare. Resection and retrieval were complete. The exam was otherwise without abnormality on direct and retroflexion views. Impression: - Perianal skin tags found on perianal exam. - Internal hemorrhoids. - One 5 mm polyp in the distal ascending colon, removed with a cold snare. Resected and retrieved. - The examination was otherwise normal on direct and retroflexion views. Recommendation: - Repeat colonoscopy in 5 years for surveillance. Procedure Code(s): --- Professional --- 22931, Colonoscopy, flexible; with removal of tumor(s), polyp(s), or other lesion(s) by snare technique Diagnosis Code(s): --- Professional --- Z12.11, Encounter for screening for malignant neoplasm of colon K64.8, Other hemorrhoids K63.5, Polyp of colon K64.4, Residual hemorrhoidal skin tags CPT copyright 2019 [employer]. All rights reserved. The codes documented in this report are preliminary and upon station superintendent review may be revised to meet current compliance requirements. Jose Roman MD Jose Roman MD 02/24/2021 8:03:11 AM Electronically signed by Jose Roman MD Number of Addenda: 0 Note Initiated On: 02/24/2021 7:37 AM Estimated Blood Loss: Estimated blood loss: none.
[2021-02-24 08:15] VITALS: BP 118/58
== END 2021-02-24 08:28 | disposition home or self-care (01) ==
LOC: M OPP 06:23
PROVIDERS: ATTEND Internal Medicine Gastroenterology
DX: Z12.11 Encounter for screening for malignant neoplasm of colon (principal); K63.5 Polyp of colon; K64.8 Other hemorrhoids; K64.4 Residual hemorrhoidal skin tags; E11.9 Type 2 diabetes mellitus without complications; E78.00 Pure hypercholesterolemia, unspecified; I10 Essential (primary) hypertension; Z79.82 Long term (current) use of aspirin; Z79.84 Long term (current) use of oral hypoglycemic drugs; Z79.899 Other long term (current) drug therapy

== ENCOUNTER → 2021-04-12 | Outpatient (CLI) | payer MEDICARE, MEDICAID ==
[~2021-04-12] MED LIST changes: -NS 1,000 ML IV ONE
--- NOTE | 2021-04-12 14:15 | REP ---
INDICATION: NON TOXIC MULTINODULAR GOITER. COMPARISON: 05/03/2020. TECHNIQUE: Real-time sonographic evaluation of thyroid performed. FINDINGS: The size of both lobes of the thyroid is essentially unchanged. Right lobe measures 5.7 x 1.9 x 1.5 cm and left lobe 5.4 x 2.4 x 2.0 cm. There is a stable isoechoic nodule in the right isthmus measuring 4 mm in diameter. In the right lower pole there is a complex cystic and solid nodule 6 x 4 x 5 mm. According to TI-RADS criteria this is a TR 3 lesion for which no follow-up is needed. In the left lobe there is a complex cystic and solid nodule measuring 3.5 x 1.8 x 2.4 cm. This nodule has become less cystic, with more internal solid components. In addition, there are scattered punctate echogenic foci within this nodule. IMPRESSION: Complex cystic and solid nodule in the left lower pole has become more solid in appearance and there are punctate echogenic foci. According to TI-RADS criteria this is a TR 4 lesion. Recommend ultrasound-guided FNA. <Electronically signed by Armando Pavon > 04/12/21 141
== END ==
LOC: M RAD 13:03
PROVIDERS: ATTEND Otolaryngology
DX: E04.2 Nontoxic multinodular goiter (principal)

== ENCOUNTER → 2021-05-08 | Outpatient (CLI) | payer MEDICARE, MEDICAID ==
[~2021-05-08] MED LIST changes: +LIDOCAINE 1% MDV 20ML VIAL As Ordered ONE; +SODIUM BICARBONATE 8.4% INJ 50MEQ 50 ML VIAL As Ordered ONE
[2021-05-08 11:01] VITALS: BP 169/81
--- NOTE | 2021-05-08 15:22 | REP ---
INDICATION: NONTOXIC MULTINODULAR GOITER. COMPARISON: None. TECHNIQUE: The procedure was performed by CUAUHTEMOC Perez, under the direct supervision of Dr. Canseco. The risks and benefits of the procedure were explained to the patient and an informed consent was obtained both verbally and written. Directly prior to the start of the procedure a formal time-out was completed in the procedure room. The complex left thyroid nodule was localized using ultrasound guidance. The skin was prepped and draped in a sterile fashion. Four mL of buffered lidocaine was used as a local anesthetic. Using ultrasound guidance a 6 fine needle aspirations were obtained using 25 gauge needles. Four specimens was sent to our laboratory here, the remaining 2 were sent out for Afirma testing. FINDINGS: The patient tolerated the procedure well and there were no immediate complications. After the appropriate amount of monitored convalescence the patient was discharged from the department. IMPRESSION: Ultrasound-guided left lobe thyroid nodule fine needle aspiration. <Electronically signed by Flakita Bruce > 05/08/21 [id number] <Electronically signed by Carlos Canseco > 05/08/21 1510
== END ==
LOC: M IRPRO 10:11
PROVIDERS: ATTEND Otolaryngology
DX: E04.2 Nontoxic multinodular goiter (principal)

== ENCOUNTER → 2021-05-29 | Outpatient (CLI) | payer MEDICARE, MEDICAID ==
[~2021-05-29] MED LIST changes: -LIDOCAINE 1% MDV 20ML VIAL As Ordered ONE; -SODIUM BICARBONATE 8.4% INJ 50MEQ 50 ML VIAL As Ordered ONE
[2021-05-29 10:22] LABS: BLOOD UREA NITROGEN 9 MG/DL (7-18); CALCIUM LEVEL 9.6 MG/DL (8.8-10.2); CARBON DIOXIDE LEVEL 30 MEQ/L (21-32); CHLORIDE LEVEL 103 MEQ/L (98-107); CREATININE FOR GFR 0.62 MG/DL (0.55-1.30); GLOMERULAR FILTRATION RATE > 60.0 (>45); GLUCOSE, FASTING 127 MG/DL (70-100); HEMOGLOBIN A1c 5.9 %; SODIUM LEVEL 139 MEQ/L (136-145)
[2021-05-29 10:40] LABS: CREATININE, URINE 17.5 MG/DL; MALB URINE SIEMENS 15.4 MG/L
== END ==
LOC: M LAB 08:31
PROVIDERS: ATTEND Family Medicine
DX: E11.9 Type 2 diabetes mellitus without complications (principal)

== ENCOUNTER → 2021-06-22 | Outpatient (CLI) | payer MEDICARE, MEDICAID ==
--- NOTE | 2021-06-22 11:25 | REP ---
INDICATION: MULTINODULAR GOITER. COMPARISON: 04/12/2021 TECHNIQUE: Real-time sonographic evaluation of the thyroid gland with Doppler FINDINGS: The thyroid gland is unchanged in size, shape, and echo pattern. The right lobe measures 5.6 x 2 x 1.4 cm and the left lobe measures 5.1 x 2.6 x 2.5 cm. The isthmus measures 4 mm. Large complex left lobe nodule is unchanged. It measures 3.9 x 2 x 2.4 cm. There is a tiny complex nodule in the right isthmus which measures 3 mm. IMPRESSION: As above. <Electronically signed by Keagan Barajas > 06/22/21 1129
== END ==
LOC: M RAD 10:07
PROVIDERS: ATTEND Otolaryngology
DX: E04.2 Nontoxic multinodular goiter (principal)

== ENCOUNTER → 2021-09-01 | Outpatient (CLI) | payer MEDICARE, MEDICAID | LOC: M LAB 09:04 | PROVIDERS: ATTEND Family Medicine | DX: E05.90 Thyrotoxicosis, unspecified without thyrotoxic crisis or storm (principal); E11.9 Type 2 diabetes mellitus without complications; E78.2 Mixed hyperlipidemia ==

== ENCOUNTER → 2021-11-06 | Outpatient (CLI) | payer MEDICARE, MEDICAID ==
[2021-11-06 11:19] LABS: BASO % 0.5 % (0.0-1.0); EOS # 0.1 10^3/uL (0.0-0.5); EOS % 2.1 % (0.0-3.0); HEMOGLOBIN 13.7 g/dl (12.0-15.5); LYMPH # 1.6 10^3/uL (1.5-5.0); LYMPH % 25.2 % (24.0-44.0); MEAN CORPUSCULAR HEMOGLOBIN 26.9 pg (27.0-33.0); MEAN CORPUSCULAR HGB CONC 32.6 g/dl (32.0-36.5); MEAN CORPUSCULAR VOLUME 82.5 fl (80.0-96.0); MONO # 0.4 10^3/uL (0.0-0.8); MONO % 7.1 % (2.0-8.0); NEUTROPHILS % 64.9 % (36.0-66.0); PLATELET COUNT, AUTOMATED 383 10^3/uL (150-450); RED BLOOD COUNT 5.09 10^6/uL (4.00-5.40); WHITE BLOOD COUNT 6.2 10^3/uL (4.0-10.0)
[2021-11-06 11:40] LABS: ERYTHROCYTE SEDIMENTATION RATE 13 mm/hr (0-30)
[2021-11-06 11:52] LABS: HEMOGLOBIN A1c 6.2 %
[2021-11-06 12:03] LABS: ALBUMIN 3.8 GM/DL (3.2-5.2); ALT/SGPT 20 U/L (12-78); BILIRUBIN,TOTAL 0.5 MG/DL (0.2-1.0); BLOOD UREA NITROGEN 11 MG/DL (7-18); CARBON DIOXIDE LEVEL 30 MEQ/L (21-32); CHLORIDE LEVEL 106 MEQ/L (98-107); CREATININE FOR GFR 0.52 MG/DL (0.55-1.30); FREE T4 1.04 NG/DL (0.76-1.46); GLOMERULAR FILTRATION RATE > 60.0 (>45); GLUCOSE, FASTING 106 MG/DL (70-100); POTASSIUM SERUM 3.5 MEQ/L (3.5-5.1); RHEUMATOID FACTOR QUANT < 10.0 IU/ML (<15.0); SODIUM LEVEL 140 MEQ/L (136-145); TOTAL PROTEIN 7.6 GM/DL (6.4-8.2); VITAMIN B12 LEVEL 295 PG/ML
== END ==
LOC: M LAB 10:41
PROVIDERS: ATTEND Psychiatry & Neurology Neurology
DX: R41.89 Other symptoms and signs involving cognitive functions and awareness (principal); E07.9 Disorder of thyroid, unspecified; F03.90 Unspecified dementia, unspecified severity, without behavioral disturbance, psychotic disturbance, mood disturbance, and anxiety; E11.9 Type 2 diabetes mellitus without complications; D51.9 Vitamin B12 deficiency anemia, unspecified

== ENCOUNTER → 2021-12-13 | Outpatient (CLI) | payer MEDICARE, MEDICAID | LOC: M RAD 11:22 | PROVIDERS: ATTEND Otolaryngology | DX: E04.2 Nontoxic multinodular goiter (principal) ==

== ENCOUNTER → 2022-01-24 | Outpatient (CLI) | payer MEDICARE, MEDICAID ==
[~2022-01-24] MED LIST changes: +LIDOCAINE 1% MDV 20ML VIAL As Ordered ONE
[2022-01-24 10:17] VITALS: BP 170/81
== END ==
LOC: M IRPRO 09:50
PROVIDERS: ATTEND Otolaryngology
DX: E04.2 Nontoxic multinodular goiter (principal)

== ENCOUNTER → 2022-07-11 | Outpatient (CLI) | payer MEDICARE, MEDICAID ==
[~2022-07-11] MED LIST changes: -LIDOCAINE 1% MDV 20ML VIAL As Ordered ONE
== END ==
LOC: M RAD 10:56
PROVIDERS: ATTEND Otolaryngology
DX: E04.2 Nontoxic multinodular goiter (principal)

== ENCOUNTER → 2022-08-15 | Outpatient (CLI) | payer MEDICARE, MEDICAID ==
[2022-08-15 12:47] LABS: BLOOD UREA NITROGEN 10 MG/DL (9-23); CREATININE FOR GFR 0.56 MG/DL (0.55-1.30); GLOMERULAR FILTRATION RATE > 60.0 (>45)
== END ==
LOC: M PLALAB 09:21
PROVIDERS: ATTEND Psychiatry & Neurology Neurology
DX: G50.0 Trigeminal neuralgia (principal)

== ENCOUNTER → 2023-01-02 | Outpatient (CLI) | payer MEDICARE, MEDICAID ==
[2023-01-02 15:59] LABS: BASO # 0.1 10^3/uL (0.0-0.2); BASO % 1.1 % (0.0-1.0); EOS # 0.1 10^3/uL (0.0-0.5); EOS % 2.3 % (0.0-3.0); HEMATOCRIT 42.6 % (36.0-47.0); HEMOGLOBIN 13.5 g/dl (12.0-15.5); LYMPH # 1.4 10^3/uL (1.5-5.0); LYMPH % 25.4 % (24.0-44.0); MEAN CORPUSCULAR HEMOGLOBIN 26.6 pg (27.0-33.0); MEAN CORPUSCULAR HGB CONC 31.7 g/dl (32.0-36.5); MEAN CORPUSCULAR VOLUME 83.9 fl (80.0-96.0); MONO # 0.4 10^3/uL (0.0-0.8); MONO % 6.2 % (2.0-8.0); NEUTROPHILS # 3.7 10^3/uL (1.5-8.5); NEUTROPHILS % 64.6 % (36.0-66.0); PLATELET COUNT, AUTOMATED 446 10^3/uL (150-450); RED BLOOD COUNT 5.08 10^6/uL (4.00-5.40); WHITE BLOOD COUNT 5.7 10^3/uL (4.0-10.0)
[2023-01-02 16:02] LABS: HEMOGLOBIN A1c 5.7 % (4.0-6.0)
[2023-01-02 16:18] LABS: CREATININE, URINE 84.8 MG/DL; MAU/CREAT RATIO 42.4 MCG/MG (0.0-30.0)
[2023-01-02 16:22] LABS: BLOOD UREA NITROGEN 10 MG/DL (9-23); CALCIUM LEVEL 8.6 MG/DL (8.3-10.6); CARBON DIOXIDE LEVEL 28 MMOL/L (20-31); CHLORIDE LEVEL 103 MMOL/L (98-107); CHOLESTEROL LEVEL 158 MG/DL (<200); CHOLESTEROL RISK RATIO 2.29 (<5); CREATININE FOR GFR 0.55 MG/DL (0.55-1.30); GLOMERULAR FILTRATION RATE > 60.0 (>45); GLUCOSE, FASTING 102 MG/DL (74-106); HDL CHOLESTEROL 68.8 MG/DL (>40); LDL CHOLESTEROL 64.8 MG/DL (<100); NON-HDL-C 89.2 MG/DL; POTASSIUM SERUM 3.9 MMOL/L (3.5-5.1); SODIUM LEVEL 140 MMOL/L (136-145); TRIGLYCERIDES LEVEL 122 MG/DL (<150)
== END ==
LOC: M PLALAB 09:01
PROVIDERS: ATTEND Family Medicine
DX: E11.9 Type 2 diabetes mellitus without complications (principal)

== ENCOUNTER → 2023-07-09 | Outpatient (CLI) | payer MEDICARE, MEDICAID | LOC: M RAD 09:11 | PROVIDERS: ATTEND Otolaryngology | DX: E04.2 Nontoxic multinodular goiter (principal); R42 Dizziness and giddiness; E11.9 Type 2 diabetes mellitus without complications ==

== ENCOUNTER → 2023-07-09 | Outpatient (CLI) | payer MEDICARE, MEDICAID ==
[2023-07-09 10:16] LABS: BASO # 0.1 10^3/uL (0.0-0.2); BASO % 0.8 % (0.0-1.0); EOS # 0.2 10^3/uL (0.0-0.5); EOS % 2.4 % (0.0-3.0); HEMOGLOBIN 13.1 g/dl (12.0-15.5); LYMPH # 1.7 10^3/uL (1.5-5.0); LYMPH % 25.2 % (24.0-44.0); MEAN CORPUSCULAR HEMOGLOBIN 26.3 pg (27.0-33.0); MEAN CORPUSCULAR VOLUME 82.3 fl (80.0-96.0); MONO # 0.5 10^3/uL (0.0-0.8); MONO % 7.7 % (2.0-8.0); NEUTROPHILS # 4.3 10^3/uL (1.5-8.5); NEUTROPHILS % 63.7 % (36.0-66.0); PLATELET COUNT, AUTOMATED 562 10^3/uL (150-450); RED BLOOD COUNT 4.98 10^6/uL (4.00-5.40); WHITE BLOOD COUNT 6.7 10^3/uL (4.0-10.0)
[2023-07-09 10:40] LABS: ALBUMIN 3.7 G/DL (3.2-5.2); ALKALINE PHOSPHATASE 62 U/L (46-116); ALT/SGPT 16 U/L (7.0-40); AST/SGOT 16 U/L (<34); BILIRUBIN,TOTAL 0.5 MG/DL (0.3-1.2); BLOOD UREA NITROGEN 10 MG/DL (9-23); CALCIUM LEVEL 9.4 MG/DL (8.3-10.6); CARBON DIOXIDE LEVEL 27 MMOL/L (20-31); CHLORIDE LEVEL 105 MMOL/L (98-107); CREATININE FOR GFR 0.54 MG/DL (0.55-1.30); GLOMERULAR FILTRATION RATE > 60.0 (>39); GLUCOSE, FASTING 120 MG/DL (74-106); POTASSIUM SERUM 3.8 MMOL/L (3.5-5.1); SODIUM LEVEL 141 MMOL/L (136-145); TOTAL PROTEIN 7.4 G/DL (5.7-8.2)
[2023-07-09 11:47] LABS: HEMOGLOBIN A1c 5.7 % (4.0-6.0)
== END ==
LOC: M LAB 09:18
PROVIDERS: ATTEND Family Medicine
DX: R42 Dizziness and giddiness (principal); E11.9 Type 2 diabetes mellitus without complications

== ENCOUNTER → 2023-09-30 | Outpatient (CLI) | payer MEDICARE, MEDICAID | LOC: M WHC 10:05 | PROVIDERS: ATTEND Family Medicine | DX: Z12.31 Encounter for screening mammogram for malignant neoplasm of breast (principal) ==

== ENCOUNTER → 2024-03-12 | Outpatient (CLI) | payer MEDICARE, MEDICAID ==
[~2024-03-12] MED LIST changes: -ROSU10TA6 PO; +ROSU10TA61 PO
[2024-03-12 11:24] LABS: CREATININE, URINE 194.4 MG/DL; MAU/CREAT RATIO 32.9 MCG/MG (0.0-30.0)
[2024-03-12 11:26] LABS: FREE T4 1.56 NG/DL (0.89-1.76); THYROID STIMULATING HORMONE 0.086 uIU/ML (0.55-4.78)
[2024-03-12 11:28] LABS: ALBUMIN 3.7 G/DL (3.2-5.2); ALKALINE PHOSPHATASE 58 U/L (46-116); ALT/SGPT 10 U/L (7.0-40); AST/SGOT < 8 U/L (<34); BILIRUBIN,TOTAL 0.4 MG/DL (0.3-1.2); BLOOD UREA NITROGEN 13 MG/DL (9-23); CALCIUM LEVEL 9.8 MG/DL (8.3-10.6); CARBON DIOXIDE LEVEL 28 MMOL/L (20-31); CHLORIDE LEVEL 105 MMOL/L (98-107); CHOLESTEROL LEVEL 166 MG/DL (<200); CHOLESTEROL RISK RATIO 2.74 (<5); CREATININE FOR GFR 0.57 MG/DL (0.55-1.30); GLOMERULAR FILTRATION RATE > 60.0 (>39); GLUCOSE, FASTING 100 MG/DL (74-106); HDL CHOLESTEROL 60.4 MG/DL (>40); NON-HDL-C 105.6 MG/DL; POTASSIUM SERUM 4.3 MMOL/L (3.5-5.1); SODIUM LEVEL 141 MMOL/L (136-145); TOTAL 25(OH) VITAMIN D 68.9 NG/ML (20.0-100.0); TOTAL PROTEIN 7.3 G/DL (5.7-8.2); TRIGLYCERIDES LEVEL 123 MG/DL (<150)
[2024-03-12 11:29] LABS: FOLATE > 24.00 NG/ML (>5.4); VITAMIN B12 LEVEL 1946 PG/ML (211-911)
[2024-03-12 11:33] LABS: HEMOGLOBIN A1c 5.6 % (4.0-6.0)
== END ==
LOC: M PLALAB 08:30
PROVIDERS: ATTEND Family Medicine
DX: E11.9 Type 2 diabetes mellitus without complications (principal); E78.2 Mixed hyperlipidemia; R41.3 Other amnesia; R53.83 Other fatigue; Z79.899 Other long term (current) drug therapy

== ENCOUNTER → 2024-07-06 | Outpatient (CLI) | payer MEDICARE, MEDICAID ==
[~2024-07-06] MED LIST changes: +METF-1157 PO; -METF-818 PO
== END ==
LOC: M RAD 10:47
PROVIDERS: ATTEND Otolaryngology
DX: E04.2 Nontoxic multinodular goiter (principal)

== ENCOUNTER → 2024-09-07 | Outpatient (REF) | payer MEDICARE, MEDICAID ==
[2024-09-07 17:45] LABS: HEMOGLOBIN A1c 6.1 % (4.0-6.0)
[2024-09-07 17:56] LABS: ALBUMIN 3.7 G/DL (3.2-5.2); ALKALINE PHOSPHATASE 79 U/L (35-104); ALT/SGPT 35 U/L (7.0-40); AST/SGOT 24 U/L (<34); BILIRUBIN,TOTAL 0.8 MG/DL (0.3-1.2); BLOOD UREA NITROGEN 14 MG/DL (9-23); CALCIUM LEVEL 9.2 MG/DL (8.3-10.6); CARBON DIOXIDE LEVEL 25 MMOL/L (20-31); CHLORIDE LEVEL 102 MMOL/L (98-107); CREATININE FOR GFR 0.66 MG/DL (0.55-1.30); GLOMERULAR FILTRATION RATE > 60.0 (>39); GLUCOSE, FASTING 143 MG/DL (74-106); POTASSIUM SERUM 4.1 MMOL/L (3.5-5.1); SODIUM LEVEL 138 MMOL/L (136-145); THYROID STIMULATING HORMONE 0.048 uIU/ML (0.55-4.78); TOTAL 25(OH) VITAMIN D 61.2 NG/ML (20.0-100.0); TOTAL PROTEIN 7.7 G/DL (5.7-8.2)
[2024-09-07 17:57] LABS: FREE T4 1.56 NG/DL (0.89-1.76)
[2024-09-07 18:06] LABS: CREATININE, URINE 256.6 MG/DL; MAU/CREAT RATIO 58.8 MCG/MG (0.0-30.0)
== END ==
LOC: M SFHCLERA 09:24
PROVIDERS: ATTEND Family Medicine
DX: E11.9 Type 2 diabetes mellitus without complications (principal); E55.9 Vitamin D deficiency, unspecified; E04.2 Nontoxic multinodular goiter

== ENCOUNTER → 2025-03-11 | Outpatient (REF) | payer MEDICARE, MEDICAID ==
[~2025-03-11] MED LIST changes: -PRAV10TA3 PO; +PRAV10TA43 PO; -PRAV20TA2 PO; +PRAV20TA78 PO
== END ==
LOC: M SFHCLERA 11:34
DX: Z53.9 Procedure and treatment not carried out, unspecified reason (principal)

== ENCOUNTER 2025-07-25 20:37 | Inpatient (IN) | payer MEDICARE, MEDICAID ==
[~2025-07-25] VITALS: Ht 157.5 cm; Wt 60.9 kg
[~2025-07-25 20:37] MED LIST changes: -ROSU10TA61 PO; +ROSU10TA90 PO
[2025-07-25 21:13] LABS: BASO # 0.1 10^3/uL (0.0-0.2); BASO % 0.3 % (0.0-1.0); EOS # 0.0 10^3/uL (0.0-0.5); EOS % 0.2 % (0.0-3.0); LYMPH # 0.5 10^3/uL (1.5-5.0); LYMPH % 2.8 % (24.0-44.0); MONO # 0.7 10^3/uL (0.0-0.8); MONO % 3.7 % (2.0-8.0); NEUTROPHILS # 18.2 10^3/uL (1.5-8.5); NEUTROPHILS % 92.4 % (36.0-66.0); PLATELET COUNT, AUTOMATED 417 10^3/uL (150-450)
[2025-07-25] MEDS: IPRATROPIUM 0.5 MG/ALBUTEROL 2.5 MG INH SOL UD 3 ML NEB ONE (22:02)
[2025-07-25 22:05] LABS: KETONE, URINE AUTO RFX 1+ mg/dL (NEGATIVE); LEUKOCYTE ESTERASE UR AUTO RFX NEGATIVE (NEGATIVE); NITRITE, URINE AUTO RFX NEGATIVE (NEGATIVE); RBC, URINE AUTO RFX 24 /HPF (0-3); SQUAM EPITHELIAL CELL UR AURFX 2 /HPF (0-6); WBC, URINE AUTO RFX 15 /HPF (0-3)
[2025-07-25] MEDS: ACETAMINOPHEN 325 MG TAB PO ONE (22:32)
[2025-07-25] MEDS: OSELTAMIVIR PHOSPHATE 75 MG CAP PO ONE (23:14)
[2025-07-25] MEDS: PIPERACILLIN/TAZOBACTAM SOD 4.5 GM in DEXTROSE 5% (D5W) ADV/MINI-BAG 50 ML IV ONE (23:15)
[2025-07-25] MEDS: NS 500 ML IV ONE (23:15)
[2025-07-25 23:20] LABS: ALT/SGPT 67 U/L (7.0-40); AST/SGOT 50 U/L (<34); CALCIUM LEVEL 9.2 MG/DL (8.3-10.6); CARBON DIOXIDE LEVEL 23 MMOL/L (20-31); CHLORIDE LEVEL 99 MMOL/L (98-107); CREATININE FOR GFR 0.61 MG/DL (0.55-1.30); GLOMERULAR FILTRATION RATE > 90.0 (>39); POTASSIUM SERUM 3.8 MMOL/L (3.5-5.1); SODIUM LEVEL 135 MMOL/L (136-145)
[2025-07-26] VITALS (9 sets, daily range): BP systolic 126–172; BP diastolic 55–76; TEMP 99.9–101.8; O2SAT 93–96
[2025-07-26] MEDS ORDERED: PIPERACILLIN/TAZOBACTAM SOD 3.375 GM in DEXTROSE 5% (D5W) ADV/MINI-BAG 50 ML IV SCH (00:50)
[2025-07-26] MEDS ORDERED: GLUCOSE 4 GM CHEW PO PRN (00:50)
[2025-07-26] MEDS ORDERED: DEXTROSE 50% 50 ML SYRINGE IV PRN (00:50)
[2025-07-26] MEDS ORDERED: GLUCAGON INJ 1 MG VIAL SC PRN (00:50)
[2025-07-26] MEDS: VANCOMYCIN HCL 1,000 MG, VIAL MATE ADAPTER 1 EACH in NS 250 ML IV ONE (01:16)
[2025-07-26] MEDS: NS (Normal Saline) 0.9% 1,000 ML IV SCH (01:16)
[2025-07-26] MEDS: ACETAMINOPHEN 325 MG TAB PO PRN (05:08)
[2025-07-26] MEDS: PIPERACILLIN/TAZOBACTAM SOD 4.5 GM in DEXTROSE 5% (D5W) ADV/MINI-BAG 50 ML IV SCH (05:08)
[2025-07-26] MEDS: IPRATROPIUM 0.5 MG/ALBUTEROL 2.5 MG INH SOL UD 3 ML NEB PRN (05:17)
[2025-07-26] MEDS: VANCOMYCIN HCL 750 MG, VIAL MATE ADAPTER 1 EACH in NS 250 ML IV SCH (08:28)
[2025-07-26] MEDS: OSELTAMIVIR PHOSPHATE 75 MG CAP PO SCH (08:28)
[2025-07-26] MEDS: INSULIN LISPRO (NovoLOG) PER UNIT SC SCH ×2 (08:29→20:38)
[2025-07-26 10:53] LABS: PLATELET COUNT, AUTOMATED 325 10^3/uL (150-450)
[2025-07-26 11:23] LABS: CALCIUM LEVEL 8.6 MG/DL (8.3-10.6); CARBON DIOXIDE LEVEL 25 MMOL/L (20-31); CHLORIDE LEVEL 108 MMOL/L (98-107); CREATININE FOR GFR 0.64 MG/DL (0.55-1.30); GLOMERULAR FILTRATION RATE > 90.0 (>39); POTASSIUM SERUM 3.3 MMOL/L (3.5-5.1); SODIUM LEVEL 143 MMOL/L (136-145)
[2025-07-26] MEDS: amLODIPine 5 MG TAB PO ONE (11:58)
[2025-07-26] MEDS: DOXYCYCLINE HYCLATE 100 MG TABLET PO ONE (11:58)
[2025-07-26] MEDS: cefTRIAXone SOD 2 GM in DEXTROSE 5% (D5W) ADV/MINI-BAG 50 ML IV SCH (11:59)
[2025-07-26] MEDS ORDERED: B-12100010 PO (12:18)
[2025-07-26] MEDS ORDERED: MEMA10TA PO (12:18)
[2025-07-26] MEDS ORDERED: ARIC1TAB PO (12:18)
[2025-07-26] MEDS ORDERED: HOME MED LIST COMPLETE! XX SCH (12:20)
[2025-07-26] MEDS: CYANOCOBALAMIN 500 MCG TAB PO SCH (13:25)
[2025-07-26] MEDS: DONEPEZIL 5 MG TAB PO SCH (13:25)
[2025-07-26] MEDS: PRAVASTATIN 20 MG TAB PO SCH (13:25)
[2025-07-26] MEDS: guaiFENesin DM LIQ 10ML UD PO PRN (13:25)
[2025-07-26] MEDS: MAALOX 30 ML SUSP *UDC PO PRN (13:25)
[2025-07-26] MEDS: HEPARIN SOD 5000 UNITS/ML 1 ML VIAL/SYRINGE SC SCH (13:26)
[2025-07-26 13:57] LABS: CALCIUM LEVEL 8.2 MG/DL (8.3-10.6); CARBON DIOXIDE LEVEL 23 MMOL/L (20-31); CHLORIDE LEVEL 107 MMOL/L (98-107); CREATININE FOR GFR 0.56 MG/DL (0.55-1.30); GLOMERULAR FILTRATION RATE > 90.0 (>39); POTASSIUM SERUM 3.6 MMOL/L (3.5-5.1); SODIUM LEVEL 141 MMOL/L (136-145)
[2025-07-26] MEDS: PROPRANOLOL 20 MG TAB PO ONE (14:33)
[2025-07-26] MEDS: DOXYCYCLINE HYCLATE 100 MG TABLET PO SCH (20:36)
[2025-07-26] MEDS: PROPRANOLOL 20 MG TAB PO SCH (20:37)
[2025-07-26] MEDS: ASPIRIN 81 MG ENTERIC TABLET PO SCH (20:38)
[2025-07-26] MEDS ORDERED: ALBUTEROL SULFATE 2.5 MG/0.5 ML INH CONCENTRATE NEB SOLN NEB PRN (21:10)
[2025-07-27 04:57] VITALS: BP 152/77; TEMP 99.2; O2SAT 95
[2025-07-27 06:36] LABS: PLATELET COUNT, AUTOMATED 329 10^3/uL (150-450)
[2025-07-27 07:04] LABS: C REACTIVE PROTEIN QUANTITATIV 4.07 MG/DL (<1.0)
[2025-07-27 07:05] LABS: CALCIUM LEVEL 8.5 MG/DL (8.3-10.6); CARBON DIOXIDE LEVEL 24 MMOL/L (20-31); CHLORIDE LEVEL 108 MMOL/L (98-107); CREATININE FOR GFR 0.58 MG/DL (0.55-1.30); GLOMERULAR FILTRATION RATE > 90.0 (>39); MAGNESIUM LEVEL 2.0 MG/DL (1.8-2.4); POTASSIUM SERUM 3.5 MMOL/L (3.5-5.1); SODIUM LEVEL 144 MMOL/L (136-145)
[2025-07-27] MEDS: POTASSIUM CHLORIDE 10MEQ SR TABLET PO ONE (08:09)
[2025-07-27 11:56] VITALS: BP 137/65; TEMP 98.6; O2SAT 94
[2025-07-27 20:17] VITALS: BP 166/77; TEMP 98.6; O2SAT 94
[2025-07-28 04:51] VITALS: BP 172/83; TEMP 98; O2SAT 96
[2025-07-28 06:45] LABS: BASO # 0.0 10^3/uL (0.0-0.2); BASO % 0.4 % (0.0-1.0); EOS # 0.1 10^3/uL (0.0-0.5); EOS % 1.3 % (0.0-3.0); LYMPH # 1.6 10^3/uL (1.5-5.0); LYMPH % 30.3 % (24.0-44.0); MONO # 0.6 10^3/uL (0.0-0.8); MONO % 11.0 % (2.0-8.0); NEUTROPHILS # 3.0 10^3/uL (1.5-8.5); NEUTROPHILS % 56.8 % (36.0-66.0); PLATELET COUNT, AUTOMATED 344 10^3/uL (150-450)
[2025-07-28 07:16] LABS: CALCIUM LEVEL 8.7 MG/DL (8.3-10.6); CARBON DIOXIDE LEVEL 25 MMOL/L (20-31); CHLORIDE LEVEL 104 MMOL/L (98-107); CREATININE FOR GFR 0.60 MG/DL (0.55-1.30); GLOMERULAR FILTRATION RATE > 90.0 (>39); POTASSIUM SERUM 3.4 MMOL/L (3.5-5.1); SODIUM LEVEL 141 MMOL/L (136-145)
[2025-07-28] MEDS: CEFPODOXIME PROXETIL 200 MG TABLET PO SCH (09:29)
[2025-07-28] MEDS: DICLOFENAC EPOLAMINE 1.3% PATCH TOP SCH (11:18)
[2025-07-28] MEDS: POTASSIUM CHLORIDE 10MEQ SR TABLET PO ONE (11:18)
[2025-07-28 12:00] VITALS: BP 157/72; TEMP 96.6; O2SAT 98
[2025-07-28 21:03] VITALS: BP 180/82; TEMP 98.2; O2SAT 98
[2025-07-29] MEDS ORDERED: OSELTAMIVIR PHOSPHATE 75 MG CAP PO SCH
[2025-07-29 04:20] VITALS: BP 160/80; TEMP 98; O2SAT 96
[2025-07-29 08:16] VITALS: BP 136/68
[2025-07-29] MEDS: amLODIPine 5 MG TAB PO SCH (08:16)
[2025-07-29] MEDS ORDERED: LEVO75TAB PO (09:18)
[2025-07-29] MEDS ORDERED: OSEL75CA2 PO (09:18)
== END 2025-07-29 10:05 | disposition home or self-care (01) | DRG 871 ==
LOC: EDBD 20:37 → M ED 20:37 → M ED INP 07-26 00:49 → M MSPAV 07-26 04:44
PROVIDERS: ADMIT Student in an Organized Health Care Education/Training Program; ATTEND Student in an Organized Health Care Education/Training Program
DX: A41.89 Other specified sepsis (principal); J18.9 Pneumonia, unspecified organism; J44.0 Chronic obstructive pulmonary disease with (acute) lower respiratory infection; E05.90 Thyrotoxicosis, unspecified without thyrotoxic crisis or storm; J10.1 Influenza due to other identified influenza virus with other respiratory manifestations; E78.5 Hyperlipidemia, unspecified; E11.9 Type 2 diabetes mellitus without complications; I10 Essential (primary) hypertension; E87.6 Hypokalemia; Z79.82 Long term (current) use of aspirin; Z79.899 Other long term (current) drug therapy; B97.29 Other coronavirus as the cause of diseases classified elsewhere

== ENCOUNTER 2025-08-02 13:03 | Emergency (ER) | payer MEDICARE, MEDICAID ==
[~2025-08-02] VITALS: Ht 157.5 cm; Wt 60.9 kg
[~2025-08-02 13:03] MED LIST changes: +ARIC1TAB PO; +B-12100010 PO; +LEVO75TAB PO; +MEMA10TA PO; +OSEL75CA2 PO
[2025-08-02] MEDS: NS 500 ML IV ONE (14:22)
[2025-08-02] MEDS: IPRATROPIUM 0.5 MG/ALBUTEROL 2.5 MG INH SOL UD 3 ML NEB ONE (14:29)
[2025-08-02 14:31] LABS: BASO # 0.1 10^3/uL (0.0-0.2); BASO % 0.4 % (0.0-1.0); EOS # 0.3 10^3/uL (0.0-0.5); EOS % 2.6 % (0.0-3.0); LYMPH # 1.7 10^3/uL (1.5-5.0); LYMPH % 13.6 % (24.0-44.0); MONO # 1.0 10^3/uL (0.0-0.8); MONO % 8.2 % (2.0-8.0); NEUTROPHILS # 9.0 10^3/uL (1.5-8.5); NEUTROPHILS % 74.3 % (36.0-66.0); PLATELET COUNT, AUTOMATED 471 10^3/uL (150-450)
[2025-08-02 15:06] LABS: ALT/SGPT 37 U/L (7.0-40); AST/SGOT 20 U/L (<34); CALCIUM LEVEL 9.5 MG/DL (8.3-10.6); CARBON DIOXIDE LEVEL 26 MMOL/L (20-31); CHLORIDE LEVEL 102 MMOL/L (98-107); CK-MB VALUE MASS < 1.0 NG/ML (<3.6); CREATININE FOR GFR 0.85 MG/DL (0.55-1.30); GLOMERULAR FILTRATION RATE 72.8 (>39); POTASSIUM SERUM 4.4 MMOL/L (3.5-5.1); SODIUM LEVEL 137 MMOL/L (136-145)
[2025-08-02] MEDS ORDERED: OSEL75CA2 PO (15:14)
[2025-08-02] MEDS ORDERED: LEVO1TAB40 PO (15:14)
[2025-08-02] MEDS ORDERED: TRIA1CR80 TOP (15:14)
[2025-08-02 15:19] LABS: CPK CREATINE PHOSPHOKINASE 32 U/L (34-145)
[2025-08-02] MEDS ORDERED: ISOVUE-370 76% 100 ML VIAL As Ordered ONE (15:20)
[2025-08-02] MEDS ORDERED: HOME MED LIST COMPLETE! XX SCH (15:20)
[2025-08-02 16:20] LABS: CK-MB VALUE MASS < 1.0 NG/ML (<3.6)
[2025-08-02 16:23] LABS: CPK CREATINE PHOSPHOKINASE 41 U/L (34-145)
[2025-08-02 17:00] VITALS: BP 143/60; O2SAT 98
[2025-08-02 17:19] VITALS: O2SAT 98
[2025-08-02 17:28] VITALS: TEMP 98.2
== END 2025-08-02 17:49 | disposition home or self-care (01) ==
LOC: EDBD 13:03 → M ED 13:03
DX: R55 Syncope and collapse (principal); E04.1 Nontoxic single thyroid nodule; R94.6 Abnormal results of thyroid function studies; R94.31 Abnormal electrocardiogram [ECG] [EKG]; E11.9 Type 2 diabetes mellitus without complications; I10 Essential (primary) hypertension; E78.5 Hyperlipidemia, unspecified; Z79.1 Long term (current) use of non-steroidal anti-inflammatories (NSAID); Z79.84 Long term (current) use of oral hypoglycemic drugs; Z79.899 Other long term (current) drug therapy
CPT/HCPCS: 36415; 71045; 71275; 80047; 80048; 80076; 82550; 82553; 84145; 84443; 84484; 85025; 93005; 94640; 99285; Q9967